=== PATIENT | male | born 1950 | race Hispanic/Latino ===

== ENCOUNTER → 2023-08-24 | Outpatient (CLI) | payer OTHER | END | disposition home or self-care (01) | LOC: RAH 13:03 | PROVIDERS: ATTEND Internal Medicine Cardiovascular Disease | DX: Z13.6 Encounter for screening for cardiovascular disorders (principal); R07.9 Chest pain, unspecified | CPT/HCPCS: 75571 ==

== ENCOUNTER → 2023-10-28 | Outpatient (CLI) | payer OTHER ==
[2023-10-28] MEDS: REGADENOSON 0.4 MG/5 ML PF SYG IVP ONE (15:50)
== END | disposition home or self-care (01) ==
LOC: SHCH 08:24
PROVIDERS: ATTEND Internal Medicine Cardiovascular Disease
DX: I25.10 Atherosclerotic heart disease of native coronary artery without angina pectoris (principal)
CPT/HCPCS: 78452; 93017; J2785; A9500 ×2; 96374